=== PATIENT | female | born 1970 | race Caucasian/White ===

== ENCOUNTER 2024-09-30 15:35 | Emergency (ER) | payer MEDICARE, SELFPAY ==
--- NOTE | 2024-09-30 16:12 | XR_ITS ---
Examination: PA lateral chest 2 views TECHNIQUE: Upright PA and lateral chest 2 views Examination type: Shortness of breath chest pain beginning 2 days ago FINDINGS: Early pneumonia posterior basal segment right lower lobe, obscuring detail posterior right hemidiaphragm on the lateral view Normal heart size No pulmonary edema IMPRESSION:. Early pneumonia posterior basal segment right lower lobe
--- NOTE | 2024-09-30 16:12 | XR_ITS ---
Examination: CT abdomen and pelvis without contrast. Coronal 3-D reconstructions. Sagittal 2-D reconstructions. Date and time of exam:September 30, 2024 1808 hours Comparison February 27, 2024 INDICATIONS: Onset right flank pain and abdominal pain beginning 3 days ago, history tubal CTDI: vol (mGy): 13.5 DLP: (mGycm): 856 Technique: Axial images of the abdomen have been obtained, 3 mm slice thickness Intravenous contrast material has not been administered. Low dose protocols were performed. One or more of the following dose reduction techniques were used; automated exposure control, adjustment of the mA and/or KV according to patient size, use of iterative reconstruction technique. Findings: Small blebs in the right lower lung zone Significant diffuse fatty infiltration throughout the liver, liver is irregular in contour No definite gallstones Spleen is not enlarged No pancreatic or adrenal mass Severe scarring right kidney with 3.7 cm right renal cyst No hydronephrosis or ureteral calculi Aorta normal size 18 mm fat-containing umbilical hernia Normal appendix No bowel obstruction No diverticulitis Moderate osteopenia IMPRESSION: Primary hepatocellular disease versus cirrhosis Severe scarring right kidney. No hydronephrosis or renal calculi. Normal appendix No bladder mass or bladder calculi
--- NOTE | 2024-09-30 16:12 | PD.EDRME ---
Rapid Medical Screening Exam RME Arrival date/time: 09/30/24 15:35 54-year-old female with no known medical history presents to the emergency room with a chief complaint of right-sided flank pain, weakness, and shortness of breath x 3 days I have greeted and performed a focused initial assessment of this patient. A comprehensive ED assessment and evaluation of the patient, analysis of all test results, and completion of the medical decision making process will be conducted by additional ED providers. Chief Complaint: Urogenital-Female Time Seen by Provider: 09/30/24 15:57 Vital signs reviewed by provider: Yes
[2024-09-30 16:16] VITALS: BP 125/86; PULSE 83; RESP 18; TEMP 37.1; O2SAT 95
[2024-09-30 16:55] LABS: Basophils # (Auto) 0.1 Thou/mm3 (0.0-0.2); Basophils % (Auto) 1 % (0-2.5); Eosinophils # (Auto) 0.5 Thou/mm3 (0.0-0.5); Eosinophils % (Auto) 4 % (0-10); Hemoglobin 14.3 g/dL (12.0-16.0); Immature Granulocytes % (Auto) 1 % (0-0); Immature Granulocytes Auto 0.08 Thou/mm3 (0.00-0.00); Lymphocytes # (Auto) 3.2 Thou/mm3 (1.0-4.8); Lymphocytes % (Auto) 21 % (10-50); Mean Corpuscular Hemoglobin 30.2 pg (25.0-35.0); Mean Corpuscular Volume 89 fL (80-100); Monocytes # (Auto) 0.7 Thou/mm3 (0.0-0.8); Monocytes % (Auto) 5 % (0-12); Neutrophils # (Auto) 10.3 Thou/mm3 (1.8-7.7); Neutrophils % (Auto) 69 % (37-80); Nucleated Red Blood Cell % 0 /100 WBC (0); Platelet Count 297 Thou/mm3 (140-440); Red Blood Count 4.73 Miln/mm3 (4.00-5.20); White Blood Count 14.9 Thou/mm3 (3.6-11.0)
[2024-09-30 17:07] LABS: Alanine Aminotransferase 27 U/L (10-49); Albumin, Serum 4.4 gm/dL (3.5-5.0); Albumin/Globulin Ratio 1.6 (1.2-2.2); Alkaline Phosphatase 82 U/L (46-116); Anion Gap 8 (7-16); Aspartate Amino Transferase 20 U/L (0-34); BUN/Creatinine Ratio 12 Ratio (12-20); Bilirubin,Total 0.4 mg/dL (0.3-1.2); Blood Urea Nitrogen 13 mg/dL (9-23); Calcium 9.5 mg/dL (8.3-10.6); Calcium (Corrected) 9.5 mg/dL (8.5-10.1); Carbon Dioxide 29.3 mMol/L (20.0-31.0); Chloride 103 mMol/L (98-107); Creatinine (Component) 1.1 mg/dL (0.6-1.3); Globulin 2.8 gm/dL (2.3-3.5); Glucose 154 mg/dL (74-106); Lipase 35 U/L (12-53); Osmolality,Calculated 282 (275-295); Potassium 4.6 mMol/L (3.4-5.1); Sodium 140 mMol/L (136-145); Total Protein 7.2 gm/dL (5.7-8.2); eGFR > 60 See Note
[2024-09-30 17:36] LABS: Collection Type, Urine Clean Catch
[2024-09-30 17:44] LABS: Bilirubin,Urine Negative (Negative); Blood,Urine Trace (Negative); Clarity,Urine Clear (Clear/Hazy); Color,Urine Lt-Yellow (Lt Yel-Yel); Glucose, Urine Negative (Negative); Ketones,Urine Negative (Negative); Leukocyte Esterase,Urine Negative (Negative); Nitrite,Urine Negative (Negative); Protein,Urine Trace (Neg - Trace); RBC,Urine 5 /hpf (0-3); Specific Gravity,Urine 1.024 (1.001-1.035); Squamous Epithelial Cell,Urine 5 /hpf (0-5); Urobilinogen,Urine Negative mg/dL (0.0-1.0); WBC,Urine 1 /hpf (0-5)
[2024-09-30 17:48] LABS: HCG Qualitative,Urine Negative
[2024-09-30 19:41] VITALS: BP 131/84; PULSE 83; RESP 18; TEMP 36.6; O2SAT 96
--- NOTE | 2024-09-30 20:55 | EDNOTE_ITS ---
ED General RME/HPI General Chief complaint: Urogenital-Female Stated complaint: MY RIGHT KIDNEY HURTS REALLY BAD X 3 DAYS Time Seen by Provider: 09/30/24 15:57 Arrival date/time: 09/30/24 15:35 54-year-old female presents to the ED with complaint of right sided flank pain, shortness of breath and weakness for the past 3 days. She was recently treated for a lung infection and took doxycycline for 10 days. She completed that course. She denies any fever or chills, runny nose or nasal congestion, ear pain or sore throat. She has had a mild nonproductive cough. She denies any nausea or vomiting, diarrhea or abdominal pain. Mode of arrival: ambulatory Limitations: no limitations RME / HPI RME / HPI narrative: 09/30/24 15:35 54-year-old female with no known medical history presents to the emergency room with a chief complaint of right-sided flank pain, weakness, and shortness of breath x 3 days I have greeted and performed a focused initial assessment of this patient. A comprehensive ED assessment and evaluation of the patient, analysis of all test results, and completion of the medical decision making process will be conducted by additional ED providers. Related Data Allergies Allergy/AdvReac Type Severity Reaction Status Date / Time codeine Allergy Mild Rash Verified 11/25/24 14:37 latex Allergy Mild Abdominal Verified 11/25/24 14:37 Pain Review of Systems Review of Systems Systems Reviewed: All systems reviewed, normal except as documented Past Medical History Past Medical History CARDIAC: Negative Cardiac Disorders RESPIRATORY: Negative Asthma GENITOURINARY: Negative Renal Disease ENDOCRINE: Negative Diabetes Mellitus Type 2 HEMATOLOGIC: Negative Sickle Cell Disease Social History SMOKING STATUS: Never smoker SECOND HAND EXPOSURE: No ED Exam Narrative Physical exam: Alert and oriented 54-year-old female, no acute distress. Lungs are diminished at the right base. No wheezing, rhonchi or rales noted. Cardiovascular regular rate and rhythm without murmurs. Abdomen is soft with mild right upper quadrant/flank tenderness. Mild right CVA tenderness. Moves all extremities well. General Limitations: Present no limitations General appearance: Present alert and in no apparent distress Head Head exam: Present atraumatic and normal inspection Eye Eye exam: Present normal appearance; Absent scleral icterus or conjunctival injection ENT ENT exam: Present normal exam Neck Neck exam: Present normal inspection Chest Chest inspection: Present normal inspection Respiratory Respiratory exam: Absent respiratory distress Cardiovascular Cardiovascular exam: Present regular rate and normal rhythm Abdominal Exam Abdominal exam: Absent distention Extremities Exam Extremities exam: Present normal inspection Back Exam Back exam: Present full ROM Neurological Exam Neurological exam: Present alert and oriented X3 Psychiatric Psychiatric exam: Present normal affect and normal mood Skin Skin exam: Present warm, dry, intact and normal color Course Course Course Narrative: Initial vital signs 125/86, pulse 83, respirations 18 and nonlabored, temp 98.8, O2 sat 95% on room air. CBC reveals an elevated white count of 14.9 with normal H&H and platelets. Chemistry panel reveals a glucose of 154, with normal electrolytes, renal panel and LFTs. Urinalysis reveals trace blood with 5 RBCs, no bacteria and negative hCG. XR chest reveals: Early pneumonia posterior basal segment right lower lobe CT abdomen and pelvis without contrast reveals: Primary hepatocellular disease versus cirrhosis. Severe scarring right kidney. No hydronephrosis or renal calculi. Normal appendix No bladder mass or bladder calculi. Patient was given ceftriaxone 1 g IM as well as azithromycin 500 mg p.o. She was discharged home in stable and improved condition. Quality Measures none Orders Category Date Time Status CT abdomen pelvis wo con Stat Exams 09/30/24 16:12 Completed XR chest 2V Stat Exams 09/30/24 16:12 Completed CBC Stat Lab 09/30/24 16:37 Completed CMP [Comprehensive Metabolic Panel] Stat Lab 09/30/24 16:37 Completed HCG Qualitative,Urine Stat Lab 09/30/24 17:27 Completed Lipase Stat Lab 09/30/24 16:37 Completed UA [Urinalysis] Stat Lab 09/30/24 17:27 Completed Urine Culture Stat Lab 09/30/24 17:27 Completed Azithromycin Po [Zithromax PO] Med 09/30/24 20:51 Discontinued 500 mg PO X1 ONE cefTRIAXone [Rocephin] Med 09/30/24 20:54 Discontinued 1,000 mg IM X1 ONE Vital Signs Vital signs: Vital Signs Temperature 98.8 F 09/30/24 16:16 Pulse Rate 83 09/30/24 16:16 Respiratory Rate 18 09/30/24 16:16 Blood Pressure 125/86 H 09/30/24 16:16 Pulse Oximetry (%) 95 09/30/24 16:16 Oxygen Delivery Method Room Air 09/30/24 16:16 Discharge Plan Plan Patient Disposition: HOME (Self Care) Discharge Disposition comment: Stable Prescriptions/Referrals Referrals: No Primary/Family,Physician [Primary Care Provider] - In 1 week Problem List Clinical Impression: Pneumonia Patient/Caregiver Discharge Instructions Education Materials: ED Pneumonia (Adult) Additional Instructions: Start taking the antibiotic tomorrow evening. Follow-up with your primary care physician in 24 to 48 hours. Return to the ED for any new or worsening symptoms. Print Language: American Stand Alone Forms: Sarah Award Info., Patient Portal Info Letter PA/BILINGUAL ADMINISTRATIVE ASSISTANT Supervising Physician PA/BILINGUAL ADMINISTRATIVE ASSISTANT Supervising Physician: Dr Larisa BHARDWAJ Narrative MDM hospital course (for use when minimal MDM required): 54-year-old female presents to the ED with complaint of right sided flank pain, shortness of breath and weakness for the past 3 days. She was recently treated for a lung infection and took doxycycline for 10 days. She completed that course. She denies any fever or chills, runny nose or nasal congestion, ear pain or sore throat. She has had a mild nonproductive cough. She denies any nausea or vomiting, diarrhea or abdominal pain. Alert and oriented 54-year-old female, no acute distress. Lungs are diminished at the right base. No wheezing, rhonchi or rales noted. Cardiovascular regular rate and rhythm without murmurs. Abdomen is soft with mild right upper quadrant/flank tenderness. Mild right CVA tenderness. Moves all extremities well. Initial vital signs 125/86, pulse 83, respirations 18 and nonlabored, temp 98.8, O2 sat 95% on room air. CBC reveals an elevated white count of 14.9 with normal H&H and platelets. Chemistry panel reveals a glucose of 154, with normal electrolytes, renal panel and LFTs. Urinalysis reveals trace blood with 5 RBCs, no bacteria and negative hCG. XR chest reveals: Early pneumonia posterior basal segment right lower lobe CT abdomen and pelvis without contrast reveals: Primary hepatocellular disease versus cirrhosis. Severe scarring right kidney. No hydronephrosis or renal calculi. Normal appendix No bladder mass or bladder calculi. Patient was given ceftriaxone 1 g IM as well as azithromycin 500 mg p.o. She was discharged home in stable and improved condition. Clinical Information Provided by: patient Medical Records reviewed [facility] Meds/Rx considered, not ordered None Labs/Rad/Tests considered, not ordered None Chronic Illness/Social Conditions which may negatively complicate care or outcome(s)-explain: None or not applicable EKG EKG not done Labs Labs: Interpreted by me Lab(s) Interpretation(s): As above Imaging Imaging interpretation: none or see narrative above Imaging Interpretation(s): As above Medication Administration(s) Medication Administration History Discontinued Medications Azithromycin (Azithromycin 250 Mg Tablet) 500 mg PO X1 ONE Stop: 09/30/24 20:52 Last Admin: 09/30/24 21:10 Dose: Not Given Documented By: BD Non-Admin Reason: Other, see note Ceftriaxone Sodium (Ceftriaxone Sodium 500 Mg Vial) 1,000 mg IM X1 ONE Stop: 09/30/24 20:55 Last Admin: 09/30/24 21:10 Dose: Not Given Documented By: BD Non-Admin Reason: Other, see note As above Diagnosis Differential Diagnosis ED Complaint MDM: UTI, renal calculi, pyelonephritis, cholecystitis, RLL pneumonia
--- NOTE | 2024-09-30 21:10 | PC.NURSE ---
pt eloped without getting medications
== END 2024-09-30 21:14 | disposition home or self-care (01) ==
PROVIDERS: Nurse Practitioner Family; Emergency Provider Family Medicine
DX: J18.9 Pneumonia, unspecified organism (principal); N28.89 Other specified disorders of kidney and ureter; D72.829 Elevated white blood cell count, unspecified
CPT/HCPCS: 36415; 71046; 74176; 80053; 81001; 81025; 83690; 85025; 87077; 87086; 87186; 99284

== ENCOUNTER → 2024-11-03 | Outpatient (CLI) | payer MEDICAID, SELFPAY ==
--- NOTE | 2024-11-03 | XR_ITS ---
Examination: Shoulder,left, 3 views Technique: Shoulder AP internal rotation, AP external rotation, Y view shoulder, 3 views Exam date and time :November 03 2024 1134 hours INDICATIONS: Left shoulder pain beginning 2 months ago. FINDINGS: Moderate osteopenia Mild to moderate narrowing glenohumeral joint No shoulder fracture or dislocation. No calcific tendinitis IMPRESSION: Mild to moderate narrowing glenohumeral joint
--- NOTE | 2024-11-03 10:08 | XR_ITS ---
Examination: PA lateral chest 2 views TECHNIQUE: Upright PA lateral chest 2 views Date and time: November 03, 2024 10:45 AM Comparison September 30, 2024 INDICATIONS: Pneumonia right lower lobe on chest film September 30, 2024 FINDINGS: Normal heart size No current pneumonia No pulmonary edema Moderate osteopenia IMPRESSION: No current pneumonia
== END | disposition home or self-care (01) ==
LOC: CDIM 09:46
PROVIDERS: PCP Nurse Practitioner Family; Referring Provider Nurse Practitioner Family; Visit Provider Nurse Practitioner Family
DX: M85.88 Other specified disorders of bone density and structure, other site (principal); M85.822 Other specified disorders of bone density and structure, left upper arm
CPT/HCPCS: 71046; 73030

== ENCOUNTER 2024-11-25 14:00 | Outpatient (AMB) | payer MEDICAID, SELFPAY ==
[2024-11-25 14:35] VITALS: BP 130/79; PULSE 61; RESP 18; TEMP 36.4; O2SAT 97; BMI 39.6
--- NOTE | 2024-11-25 14:35 | AMB.GYNCLNOT ---
Vital Signs 11/25/24 14:35 Height 1.65 m Height Method Stated Weight 108.125 kg Weight Measurement Method Standing Scale BMI 39.6 BP 130/79 Blood Pressure Source Automatic Cuff Blood Pressure Location Right Upper Arm Position Sitting Respiration 18 Pulse 61 Pulse Source Monitor Temp 97.5 F Temp Source Temporal Artery Scan Pulse Oximetry (%) 97 Oxygen Delivery Method Room Air Allergies/Home Meds Allergies & Medications Allergies codeine Allergy (Mild, Verified 11/25/24 14:37) Rash latex Allergy (Mild, Verified 11/25/24 14:37) Abdominal Pain Intake Visit Data Collection New Patient or Established: Established Patient (seen at [facility] within 3 years) Reason for Visit:: REFERRAL VAGINAL BLEEDING Seen by Clinical Staff ONLY (RN/MA): No Clarity Developer Required: No Do You Feel Safe at Home: Yes Authorities Contacted: N/A PCP or OBGYN visit in last 3 months: Yes Date of Last PCP or OBGYN visit: 09/30/24 Hx Now: No Are you currently on any form of Control: No Last menstrual period: 11/15/24 Pain Present Currently: Yes Pain Location: Abdomen Pain Scale Used: Collado-Pinzon/Numerical Pain scale:: 7 Smoking Status Smoking Status: Never smoker 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 1. Little interest or pleasure in doing things: not at all 2. Feeling down, depressed, or hopeless: not at all Total score: 0 PHQ-9 3. Trouble falling or staying asleep, or sleeping too much: Not at all 4. Feeling tired or having little energy: Not at all 5. Poor appetite or overeating: Not at all 6. Feeling bad about yourself - or that you are a failure or have let yourself or your family down: Not at all 7. Trouble concentrating on things, such as reading the newspaper or watching television: Not at all 8. Moving or speaking so slowly that other people could have noticed? - Or the opposite - being so fidgety or restless that you have been moving around a lot more than usual: not at all 9. Thoughts that you would be better off or of hurting yourself in some way: Not at all Total score: 0 If you checked off any problems, how difficult have these problems made it for you to do your work, take care of things at home, or get along with other people?: not difficult at all Source: Developed by Drs. Gerald Goff, María Elena Rascon, Tony Chan and colleagues, with an educational ann marie from [employer]. Depression screen completed yes Social History Living Situation History Marital Status: Unknown Lives With: Family Housing: House Tobacco History Smoking Status: Never smoker Second Hand Smoke Exposure: No Alcohol History Alcohol Intake: Never Domestic Abuse History Do You Feel Safe at Home: Yes History of Present Illness HPI Narrative Laura Dowling, a 54-year-old female with a history of postmenopausal bleeding, presents for evaluation of abnormal uterine bleeding. The patient reports her last menstrual period was 5 years ago, in 2019. On November 13 and 2024, the patient experienced severe cramping in her lower abdomen, which she describes as a pain that I've never felt. This was followed by the onset of vaginal bleeding, which alarmed her due to its unexpected nature after 5 years without menstruation. The bleeding continued until two days prior to this visit, lasting approximately 10 days. The patient reports that the bleeding pattern was similar to her previous menstrual periods, which typically lasted 4 days. She describes herself as having always been a 4-day bleeder with nothing bad, cramps. The patient expresses significant concern about this bleeding episode, stating, I was like, Oh, shit, I'm dying. She notes that the experience freaked me out due to its unexpected nature after such a long period without menstruation. The patient denies any other associated symptoms or changes in daily functioning related to this episode. Of note, the patient mentions a family history of ovarian cancer. She also reports a recent emergency room visit approximately 3 months ago, where she stayed for 26 hours. The patient states that she was called back a month later and informed of a urinary tract infection, for which her primary care physician prescribed medication. Medical History: - Postmenopausal bleeding - Primary hepatocellular disease versus cirrhosis - Severe scarring of the right kidney Medications and Supplements: - Misoprostol (to be taken 24 hours before the biopsy) Family History: - Family member (unspecified): History of ovarian cancer ROS: General: Negative for fever, chills, fatigue, or weight change. Gastrointestinal: Positive for abdominal cramping. Genitourinary: Positive for postmenopausal vaginal bleeding. Diagnostic Test Results and Labs: CT scan of abdomen/pelvis (28 December 2024): - Primary hepatocellular disease versus cirrhosis - Severe scarring of the right kidney - No hydronephrosis or renal calculi - Normal appendix - No bladder mass or calculi [facility] results: - Hemoglobin: 14.7 g/dL - Urinalysis: Red with turbid appearance, 3+ occult blood, >30 RBC - PtiNR: Within normal limits - Gonorrhea and chlamydia: Negative - Ca125: 21.9 (normal for postmenopausal) - Testosterone: 35 - Free testosterone: <0.2 - Trichomonas: Negative - AMH: 0.05 - AMH: <0.015 - DHA: Low - RPR: Non-reactive Exam General General Appearance: alert, in no apparent distress and healthy appearing Head Head exam: atraumatic Neck Neck exam: Present normal inspection and trachea midline Chest Chest inspection: Present normal inspection and symmetric chest wall rise External exam: Present normal external exam; Absent tenderness Neuro Neurological exam: Present oriented X3 Psych Psychiatric exam: Present normal affect and normal mood Office Procedures OB Clinic LOC & Office Proc's Nursing/Assessment Patient Status: Established Patient OB Clinic Nursing Assessment: Medication Reconciliation, Update PMH in EMR and Vital Signs OB Clinic Coordination of Care: Complex Care and Chronic Disease 1-5, Consent,records obtained, informed consent, Education Simp Pt/Fam, Results/Orders obtained and Staff clarify orders Established Patient Charge Established Patient Point Assignment: 90 Established Patient Point Charge: EP Level 3 (80-115) Assessment & Plan Diagnosis / Problem List (1) Postmenopausal bleeding: Status: Acute (2) Stenosis of cervix: Status: Acute Plan Postmenopausal bleeding Assessment: Patient experienced severe cramping and vaginal bleeding starting November 13, 2024, lasting for approximately 12 days. This occurred 5 years after last menstrual period in 2019. CT scan of abdomen and pelvis (December 28, 2024) showed no concerning findings related to uterus or ovaries. Lab results, including Ca125 (21.9), within normal limits for postmenopausal status. Plan: - Prescribe misoprostol to be taken 24 hours before endometrial biopsy - Schedule endometrial biopsy for next week - Order stat pelvic ultrasound - Schedule follow-up appointment after biopsy results are available - If biopsy is negative, no further invasive testing required - If biopsy is positive or inconclusive, consider hysteroscopy pending insurance approval and pre-operative clearance Abnormal urinalysis Assessment: Recent urinalysis showed 3+ occult blood and >30 RBCs. Likely due to contamination from vaginal bleeding during urine collection. Patient denies current urinary symptoms. Plan: - No immediate intervention required - Monitor for urinary symptoms - Consider repeat urinalysis when vaginal bleeding has resolved if clinically indicated
== END 2024-11-25 14:50 | disposition home or self-care (01) ==
LOC: HODSOBC 14:00
PROVIDERS: PCP Nurse Practitioner Family; Referring Provider Nurse Practitioner Family; Supervising Provider Obstetrics & Gynecology; Visit Provider Obstetrics & Gynecology
DX: N95.0 Postmenopausal bleeding (principal); N88.2 Stricture and stenosis of cervix uteri
CPT/HCPCS: 99213; G0463

== ENCOUNTER 2024-12-31 13:10 | Emergency (ER) | payer OTHER, SELFPAY ==
[2024-12-31 13:23] VITALS: BP 155/88; PULSE 75; RESP 20; TEMP 36.8; O2SAT 95; BMI 37.9
--- NOTE | 2024-12-31 13:28 | XR_ITS ---
Examination: Abdomen sonogram, Limited Date and time of exam: January 10, 2025 1338 hours INDICATIONS: Right upper abdominal pain beginning one week ago Technique: Real-time last scale transabdominal sonographic images of the upper abdomen obtained. Findings: Normal gallbladder. Normal common bile duct 0.3 cm Pancreatic head 4.0 cm Liver 20.1 cm irregular contour fatty infiltration no focal liver lesions Normal hepatopedal portal venous flow Patent IVC IMPRESSION: Normal gallbladder Pancreatic head appears prominent, recommend repeat CT scan abdomen pelvis intravenous contrast follow-up Moderate hepatomegaly
--- NOTE | 2024-12-31 13:29 | EDNOTE_ITS ---
<Statement entered by Megan Brown MD - 01/08/25 06:24> As co-signing physician, I was present and available for consult prn. I concur with the plan and care as documented by the midlevel provider. ED Abdominal Pain RME/HPI General Chief Complaint: Abdominal Pain Stated complaint: Abdominal pain X 1 week Time seen by provider: 12/31/24 13:15 Arrival date/time: 12/31/24 13:10 54-year-old female with no known medical history presents to the emergency room with a chief complaint of 10 out of 10 right upper quadrant abdominal pain and tenderness x 1 week Source: patient Mode of arrival: ambulatory Limitations: no limitations Related Data Allergies Allergy/AdvReac Type Severity Reaction Status Date / Time codeine Allergy Mild Rash Verified 12/31/24 13:18 latex Allergy Mild Abdominal Verified 12/31/24 13:18 Pain Review of Systems Review of Systems Systems Reviewed: All systems reviewed, normal except as documented Constitutional Constitutional: Reports system reviewed and no additional complaints, except as documented, Denies fatigue, Denies fever(s), Denies headache(s) and Denies weakness Eyes Eyes: Reports system reviewed and no additional complaints, except as documented, Denies blurry vision and Denies change in vision ENT Ears, Nose, Mouth, and Throat: Reports system reviewed and no additional complaints, except as documented, Denies otalgia, Denies headache(s), Denies nasal congestion, Denies throat swelling and Denies vertigo Cardiovascular Cardiovascular: Reports system reviewed and no additional complaints, except as documented, Denies chest pain, Denies dyspnea and Denies dyspnea on exertion Respiratory Respiratory: Reports system reviewed and no additional complaints, except as documented, Denies chest congestion, Denies cough, Denies dyspnea, Denies dyspnea on exertion and Denies wheezing Gastrointestinal Gastrointestinal: Reports system reviewed and no additional complaints, except as documented, Reports abdominal pain, Reports cramping, Denies nausea and Denies vomiting Genitourinary Genitourinary: Reports system reviewed and no additional complaints, except as documented Musculoskeletal Musculoskeletal: Reports system reviewed and no additional complaints, except as documented and Denies back pain Integumentary/Breasts Skin/Breast: Reports system reviewed and no additional complaints, except as documented and Denies wounds Neurologic Neurologic: Reports system reviewed and no additional complaints, except as documented, Denies confusion, Denies headache(s), Denies lack of coordination, Denies vertigo and Denies weakness Psychiatric Psychiatric: Reports system reviewed and no additional complaints, except as documented, Denies anxiety, Denies confusion, Denies depression, Denies paranoia, Denies suicidal ideation and Denies tactile hallucinations Endocrine Endocrine: Reports system reviewed and no additional complaints, except as documented and Denies fatigue Hematologic/Lymphatic Hematologic/Lymphatic: Reports system reviewed and no additional complaints, except as documented and Denies lymphadenopathy Allergic/Immunologic Allergic/Immunologic: Reports system reviewed and no additional complaints, except as documented, Denies throat swelling, Denies urticaria and Denies wheezing Past Medical History Past Medical History CARDIAC: Negative Cardiac Disorders RESPIRATORY: Negative Asthma GENITOURINARY: Negative Renal Disease ENDOCRINE: Negative Diabetes Mellitus Type 2 HEMATOLOGIC: Negative Sickle Cell Disease Social History SMOKING STATUS: Former smoker SECOND HAND EXPOSURE: No ED Exam General Limitations: Present no limitations General appearance: Present alert and in no apparent distress Head Head exam: Present atraumatic Eye Eye exam: Present normal appearance, PERRL and EOMI ENT ENT exam: Present normal exam, normal oropharynx and mucous membranes moist Neck Neck exam: Present normal inspection, full ROM and trachea midline Chest Chest inspection: Present normal inspection and symmetric chest wall rise Respiratory Respiratory exam: Present normal lung sounds bilaterally Cardiovascular Cardiovascular exam: Present regular rate, normal rhythm and normal heart sounds Abdominal Exam Abdominal exam: Present soft, tenderness, normal bowel sounds and Nava's sign; Absent tenderness at McBurney's Point Abdominal tenderness: Present RUQ Extremities Exam Extremities exam: Present normal inspection and full ROM Back Exam Back exam: Present normal inspection and full ROM Neurological Exam Neurological exam: Present alert, oriented X3 and CN II-XII intact Psychiatric Psychiatric exam: Present normal affect and normal mood Skin Skin exam: Present warm, dry, intact and normal color Course Quality Measures none Orders Category Date Time Status CT Screening NOW Care 12/31/24 14:03 Active Insert IV STAT Care 12/31/24 14:[address] abdomen pelvis w con Stat Exams 12/31/24 14:02 Completed US gall bladder Stat Exams 12/31/24 13:28 Completed CBC Stat Lab 12/31/24 13:54 Completed CMP [Comprehensive Metabolic Panel] Stat Lab 12/31/24 13:54 Completed HCG Qualitative,Urine Stat Lab 12/31/24 14:49 Completed Lipase Stat Lab 12/31/24 13:54 Completed UA [Urinalysis] Stat Lab 12/31/24 14:49 Completed Urine Culture Stat Lab 12/31/24 14:49 Received Vital Signs Vital signs: Vital Signs Temperature 98.2 F 12/31/24 13:23 Pulse Rate 75 12/31/24 13:23 Respiratory Rate 20 12/31/24 13:23 Blood Pressure 155/88 H 12/31/24 13:23 Pulse Oximetry (%) 95 12/31/24 13:23 Oxygen Delivery Method Room Air 12/31/24 13:23 Abdominal Pain MDM MDM Narrative MDM Narrative:: 54-year-old female with no known medical history presents to the emergency room with a chief complaint of 10 out of 10 right upper quadrant abdominal pain and tenderness x 1 week Patient is hemodynamically stable and in no apparent distress. Patient is afebrile not tachycardic not tachypneic Physical examination shows tenderness and pain to the patient's right upper quadrant with a positive Nava sign. Ultrasound of the gallbladder was completed and was negative for any cholelithiasis or cholecystitis the ultrasound did show a pancreatic head that appears prominent. A CT of the abdomen and pelvis with contrast was then ordered the CT of the abdomen and pelvis shows no acute findings. During my reevaluation the patient states she feels a lot better. Patient was discharged and educated to follow-up with primary care provider in the next 24 to 48 hours and return to the emergency room for any evidence of worsening signs or symptoms Patient data External records reviewed:: [facility] previous records Clinical information provided by:: patient Social determinants that could affect healthcare access:: none Patient has the following chronic illnesses:: No chronic illness How is presenting disease/condition affected by chronic disease/condition?: no chronic disease Evaluation data The following diagnostics were reviewed and interpreted by me:: lab results and radiology exam(s) Lab and/or radiology exams considered but not ordered:: Labs and radiology exams considered and ordered Interpretation Summary: Ultrasound gallbladder-Findings: Normal gallbladder. Normal common bile duct 0.3 cm Pancreatic head 4.0 cm Liver 20.1 cm irregular contour fatty infiltration no focal liver lesions Normal hepatopedal portal venous flow Patent IVC IMPRESSION: Normal gallbladder Pancreatic head appears prominent, recommend repeat CT scan abdomen pelvis intravenous contrast follow-up Moderate hepatomegaly Abdomen and pelvis CT-Findings: Liver is irregular in contour with diffuse fatty infiltration Contracted gallbladder. Spleen is not enlarged. No pancreatic or adrenal mass. Severe scarring right kidney with benign renal cysts, the largest 3.6 cm Abdominal aortic calcification no aneurysmal dilatation Normal appendix No ureteral calculi or bladder calculi No bowel obstruction Moderate osteopenia Impression : Primary hepatocellular disease Severe scarring right kidney No renal or ureteral calculi, no hydronephrosis Normal appendix No bladder mass or bladder calculi No bowel obstruction Medications / Prescriptions Medications or Prescriptions considered but not ordered:: Medication given Medication administrations:: Medication given Consultations Consultation(s) initiated? (list below): No Diagnosis Differential diagnosis abdominal pain: abdominal pain, gastroenteritis and other (Cholelithiasis/cholecystitis) Most likely diagnosis given after review of the tests above:: Gastroenteritis Admission Indicated Admission indicated?: not indicated Admission Request Was there a request for admission?: No Disposition Plan Disposition Plan: Discharge Discharge Attestation Discharge Attestation: The patient and all family members were given an opportunity to ask questions and understood the discharge instructions. Discharge instructions specifically effects, indications for sooner follow up or return to the emergency department, and the expected course of current diagnosis. Patient condition: Stable Discharge Plan Plan Patient Disposition: HOME (Self Care) Discharge Disposition comment: Stable Prescriptions/Referrals Referrals: Sree Renner FNP [Primary Care Provider] - In 1 week Problem List Clinical Impression: Gastroenteritis Patient/Caregiver Discharge Instructions Education Materials: Understanding Colitis, ED Gastroenteritis, Noninfectious Additional Instructions: Please follow-up with your primary care provider in the next [address] of your abdomen and pelvis was negative for any acute findings. Your ultrasound of your gallbladder was negative for any acute findings. Your blood work and urinalysis were within normal limits If your sinus symptoms continue you will need a referral to a fusion juncture grinder for further management For any evidence of worsening signs or symptoms return to the emergency room immediately Print Language: Slovenian Stand Alone Forms: Sarah Award Info., Patient Portal Info Letter BIRD/ANITA Supervising Physician BIRD/ANITA Supervising Physician: Dr. BROWN
--- NOTE | 2024-12-31 14:02 | XR_ITS ---
Examination: CT abdomen with intravenous contrast CT pelvis with intravenous contrast 2-D coronal reconstructions 2-D sagittal reconstructions Date and time of exam:December 31, 2024, 1611 hours, comparison September 30, 2024 INDICATIONS: Epigastric pain and right flank pain beginning 10 days ago. CTDI: vol (mGy) 14.6 DLP: (mGycm) 901 Technique: Multiple axial sections of the abdomen and pelvis have been obtained. 64 slice high-resolution scanner used. 3 mm axial sections have been obtained, post intravenous injection of 60 cc Isovue 370 2-D sagittal, coronal reconstructions obtained. Low dose protocols were performed. One or more of the following dose reduction techniques were used; automated exposure control, adjustment of the mA and/or KV according to patient size, use of iterative reconstruction technique. Findings: Liver is irregular in contour with diffuse fatty infiltration Contracted gallbladder. Spleen is not enlarged. No pancreatic or adrenal mass. Severe scarring right kidney with benign renal cysts, the largest 3.6 cm Abdominal aortic calcification no aneurysmal dilatation Normal appendix No ureteral calculi or bladder calculi No bowel obstruction Moderate osteopenia Impression : Primary hepatocellular disease Severe scarring right kidney No renal or ureteral calculi, no hydronephrosis Normal appendix No bladder mass or bladder calculi No bowel obstruction
[2024-12-31 14:21] LABS: Basophils # (Auto) 0.1 Thou/mm3 (0.0-0.2); Basophils % (Auto) 1 % (0-2.5); Eosinophils # (Auto) 0.2 Thou/mm3 (0.0-0.5); Eosinophils % (Auto) 2 % (0-10); Hematocrit 43.9 % (36.0-46.0); Hemoglobin 14.3 g/dL (12.0-16.0); Immature Granulocytes Auto 0.04 Thou/mm3 (0.00-0.00); Lymphocytes # (Auto) 3.0 Thou/mm3 (1.0-4.8); Lymphocytes % (Auto) 25 % (10-50); Mean Corpuscular HGB Conc 32.6 g/dl (31.0-37.0); Mean Corpuscular Hemoglobin 29.8 pg (25.0-35.0); Mean Corpuscular Volume 92 fL (80-100); Monocytes # (Auto) 0.6 Thou/mm3 (0.0-0.8); Monocytes % (Auto) 5 % (0-12); Neutrophils # (Auto) 8.2 Thou/mm3 (1.8-7.7); Neutrophils % (Auto) 67 % (37-80); Nucleated Red Blood Cell # 0.00 Thou/mm3 (0.00-0.00); Nucleated Red Blood Cell % 0 /100 WBC (0); Platelet Count 311 Thou/mm3 (140-440); RDW Standard Deviation 46.6 fL (36.4-46.3); Red Blood Count 4.80 Miln/mm3 (4.00-5.20); White Blood Count 12.2 Thou/mm3 (3.6-11.0)
[2024-12-31 14:41] LABS: Alanine Aminotransferase 15 U/L (10-49); Albumin, Serum 4.4 gm/dL (3.5-5.0); Albumin/Globulin Ratio 1.8 (1.2-2.2); Alkaline Phosphatase 77 U/L (46-116); Anion Gap 7 (7-16); Aspartate Amino Transferase 14 U/L (0-34); BUN/Creatinine Ratio 13 Ratio (12-20); Bilirubin,Total 0.3 mg/dL (0.3-1.2); Blood Urea Nitrogen 13 mg/dL (9-23); Calcium 9.9 mg/dL (8.3-10.6); Calcium (Corrected) 9.9 mg/dL (8.5-10.1); Carbon Dioxide 27.9 mMol/L (20.0-31.0); Chloride 106 mMol/L (98-107); Creatinine (Component) 1.0 mg/dL (0.6-1.3); Estimated Creatinine Clearance 80.3 mL/min (>60); Globulin 2.4 gm/dL (2.3-3.5); Glucose 98 mg/dL (74-106); Lipase 47 U/L (12-53); Osmolality,Calculated 281 (275-295); Potassium 4.3 mMol/L (3.4-5.1); Sodium 141 mMol/L (136-145); Total Protein 6.8 gm/dL (5.7-8.2); eGFR > 60 See Note
[2024-12-31 15:06] LABS: Collection Type, Urine Clean Catch
[2024-12-31 15:14] LABS: Bilirubin,Urine Negative (Negative); Blood,Urine Trace (Negative); Clarity,Urine Clear (Clear/Hazy); Color,Urine Lt-Yellow (Lt Yel-Yel); Glucose, Urine Negative (Negative); Hyaline Casts,Urine < 1 /hpf (0-1); Ketones,Urine Negative (Negative); Leukocyte Esterase,Urine Negative (Negative); Nitrite,Urine Negative (Negative); PH,Urine 6.0 (5.0-7.0); Protein,Urine Negative (Neg - Trace); RBC,Urine 3 /hpf (0-3); Specific Gravity,Urine 1.020 (1.001-1.035); Squamous Epithelial Cell,Urine 2 /hpf (0-5); Urobilinogen,Urine Negative mg/dL (0.0-1.0); WBC,Urine 1 /hpf (0-5)
[2024-12-31 15:24] LABS: HCG Qualitative,Urine Negative
[2024-12-31 17:37] VITALS: PULSE 77; RESP 16; O2SAT 99
== END 2024-12-31 17:38 | disposition home or self-care (01) ==
PROVIDERS: Emergency Provider Nurse Practitioner Family; PCP Nurse Practitioner Family
DX: K52.9 Noninfective gastroenteritis and colitis, unspecified (principal); K76.9 Liver disease, unspecified; N28.89 Other specified disorders of kidney and ureter
CPT/HCPCS: 36415; 74177; 76705; 80053; 81001; 81025; 83690; 85025; 87086; 99283; A4649; Q9967

== ENCOUNTER → 2025-01-19 | Outpatient (CLI) | payer OTHER, SELFPAY ==
--- NOTE | 2025-01-19 10:05 | XR_ITS ---
Examination: Transvaginal ultrasound of the pelvis, complete Technique: Transvaginal sonographic images pelvis performed using last scale imaging Exam date and time: January 19, 2025 1020 hrs. Indications: Pelvic cramping beginning 2 months ago Findings: Uterus 10.1 cm uterine body area of fibroid degeneration 23 x 23 mm Endometrial stripe 11 mm Right ovary 3.4 cm arterial flow Left ovary obscured by bowel gas Impression: Uterine body area of fibroid degeneration 23 x 19 x 23 mm, recommend 6 month follow-up pelvic sonography.
== END | disposition home or self-care (01) ==
PROVIDERS: PCP Nurse Practitioner Family; Referring Provider Obstetrics & Gynecology; Visit Provider Obstetrics & Gynecology
DX: D25.9 Leiomyoma of uterus, unspecified (principal)
CPT/HCPCS: 76830

== ENCOUNTER 2025-04-04 18:20 | Emergency (ER) | payer OTHER, MEDICAID, SELFPAY ==
[2025-04-04 18:21] VITALS: BMI 39.9
--- NOTE | 2025-04-04 18:24 | EKG_ITS ---
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
[2025-04-04 18:42] VITALS: BP 142/95; PULSE 80; RESP 18; TEMP 37.1; O2SAT 95
[2025-04-04 19:35] VITALS: BP 152/85; PULSE 68; RESP 17; TEMP 36.7; O2SAT 95
--- NOTE | 2025-04-04 19:40 | PD.EDRME ---
Rapid Medical Screening Exam RME Arrival date/time: 04/04/25 18:20 54-year-old female reports with complaints of left-sided chest pain that began this afternoon Chief Complaint: Chest Pain Time Seen by Provider: 04/04/25 19:35 Vital signs: Vital Signs Temperature 98.8 F 04/04/25 18:42 Pulse Rate 80 04/04/25 18:42 Respiratory Rate 18 04/04/25 18:42 Blood Pressure 142/95 H 04/04/25 18:42 Pulse Oximetry (%) 95 04/04/25 18:42 Oxygen Delivery Method Room Air 04/04/25 18:42 Exam: > Clinical Impression: ?
[2025-04-04 20:14] LABS: Basophils # (Auto) 0.1 Thou/mm3 (0.0-0.2); Basophils % (Auto) 0 % (0-2.5); Eosinophils # (Auto) 0.3 Thou/mm3 (0.0-0.5); Eosinophils % (Auto) 2 % (0-10); Hematocrit 44.7 % (36.0-46.0); Hemoglobin 14.6 g/dL (12.0-16.0); Immature Granulocytes Auto 0.05 Thou/mm3 (0.00-0.00); Lymphocytes # (Auto) 3.7 Thou/mm3 (1.0-4.8); Lymphocytes % (Auto) 27 % (10-50); Mean Corpuscular HGB Conc 32.7 g/dl (31.0-37.0); Mean Corpuscular Hemoglobin 29.7 pg (25.0-35.0); Mean Corpuscular Volume 91 fL (80-100); Monocytes # (Auto) 0.9 Thou/mm3 (0.0-0.8); Monocytes % (Auto) 7 % (0-12); Neutrophils # (Auto) 9.0 Thou/mm3 (1.8-7.7); Neutrophils % (Auto) 64 % (37-80); Nucleated Red Blood Cell # 0.00 Thou/mm3 (0.00-0.00); Nucleated Red Blood Cell % 0 /100 WBC (0); Platelet Count 343 Thou/mm3 (140-440); RDW Standard Deviation 45.0 fL (36.4-46.3); Red Blood Count 4.92 Miln/mm3 (4.00-5.20); White Blood Count 14.0 Thou/mm3 (3.6-11.0)
[2025-04-04 20:36] LABS: Alanine Aminotransferase 22 U/L (10-49); Albumin, Serum 4.9 gm/dL (3.5-5.0); Albumin/Globulin Ratio 1.8 (1.2-2.2); Alkaline Phosphatase 86 U/L (46-116); Anion Gap 7 (7-16); Aspartate Amino Transferase 22 U/L (0-34); BUN/Creatinine Ratio 9 Ratio (12-20); Bilirubin,Total 0.2 mg/dL (0.3-1.2); Blood Urea Nitrogen 9 mg/dL (9-23); Calcium 10.6 mg/dL (8.3-10.6); Calcium (Corrected) 10.6 mg/dL (8.5-10.1); Carbon Dioxide 29.8 mMol/L (20.0-31.0); Chloride 105 mMol/L (98-107); Creatinine (Component) 1.0 mg/dL (0.6-1.3); Estimated Creatinine Clearance 79.9 mL/min (>60); Globulin 2.7 gm/dL (2.3-3.5); Glucose 83 mg/dL (74-106); Osmolality,Calculated 280 (275-295); Potassium 4.2 mMol/L (3.4-5.1); Sodium 142 mMol/L (136-145); Total Protein 7.6 gm/dL (5.7-8.2); Troponin I < 0.002 ng/mL (0.0-0.045); eGFR > 60 See Note
[2025-04-04 21:02] LABS: Collection Type, Urine Clean Catch
[2025-04-04 21:08] LABS: Bilirubin,Urine Negative (Negative); Blood,Urine Trace (Negative); Clarity,Urine Clear (Clear/Hazy); Color,Urine Lt-Yellow (Lt Yel-Yel); Glucose, Urine Negative (Negative); Ketones,Urine Negative (Negative); Leukocyte Esterase,Urine Negative (Negative); Nitrite,Urine Negative (Negative); PH,Urine 6.0 (5.0-7.0); Protein,Urine Negative (Neg - Trace); RBC,Urine 1 /hpf (0-3); Specific Gravity,Urine 1.010 (1.001-1.035); Squamous Epithelial Cell,Urine 2 /hpf (0-5); Urobilinogen,Urine Negative mg/dL (0.0-1.0); WBC,Urine 1 /hpf (0-5)
--- NOTE | 2025-04-04 21:16 | PC.NURSE ---
Patient eloped the ER per security.
== END 2025-04-04 21:17 | disposition left against medical advice (07) ==
LOC: SERX 20:09
PROVIDERS: Emergency Provider Physician Assistant; PCP Family Medicine
DX: Z53.21 Procedure and treatment not carried out due to patient leaving prior to being seen by health care provider (principal)
CPT/HCPCS: 36415; 80053; 81001; 84484; 85025; 93005; 99282